=== PATIENT | male | born 1960 | race Caucasian/White ===

== ENCOUNTER 2016-09-20 13:00 | Emergency (ER) | payer OTHER ==
[~2016-09-20] VITALS: Wt 122.0 kg
[~2016-09-20 13:00] MED LIST: ASPIR LOW81 MG PO; BACTRIM DS 8001 TA1 PO; BUPROPION HYDR300 MG PO; CLEOCIN150 MG PO; ESCITALOPRAM OX20 MG PO; FLOVENT HF0.11 MG/AC INH; HYDROCODONE BIT1 T11 PO; HYDROXYZINE PAM50 MG PO; INVEGA9 MG PO; LATU40TA PO; LIPITOR20 MG PO; LISINOPRIL20 MG PO; MIRALAX POWDER17 G1 PO; PRILOSEC40 M1 PO; Peridex 473 ML473 ML PO; VENTOLIN H0.09 MG/AC INH; VICODIN ES 7501 TAB PO; Wellbutrin Xl150 MG PO
[2016-09-20] MEDS ORDERED: PALIPERIDONE ER6 MG PO (13:09)
[2016-09-20 13:18] LABS: BASO % 0.4 % (0.0-1.0); EOS # 0.2 10*3/uL (0.0-0.4); EOS % 2.3 % (1.0-4.0); HEMATOCRIT 46.8 % (42.0-52.0); LYMPH # 2.2 10*3/uL (1.3-4.4); LYMPH % 25.7 % (27.0-41.0); MEAN CELL VOLUME 86.8 fl (80.0-94.0); MEAN CORPUSCULAR HGB 29.7 pg (27.0-31.0); MEAN CORPUSCULAR HGB CONC 34.2 g/dl (33.0-37.0); MEAN PLATELET VOLUME 10.1 fl (9.6-12.3); MONO # 0.7 10*3/uL (0.1-1.0); MONO % 8.6 % (3.0-9.0); NEUT # 5.3 10*3/uL (2.3-7.9); NEUT % 62.8 % (47.0-73.0); PLATELET COUNT AUTOMATED 282 10*3/uL (130-400); RED BLOOD COUNT 5.39 10*6/uL (4.50-5.90); WHITE BLOOD COUNT 8.4 10*3/uL (4.8-10.8)
[2016-09-20 13:27] LABS: PROTHROMBIN TIME 10.6 SECONDS (9.0-12.4)
[2016-09-20 13:38] LABS: ALBUMIN 3.8 gm/dl (3.1-4.5); ALKALINE PHOSPHATASE 100 U/L (45-117); BILIRUBIN, TOTAL 0.7 mg/dl (0.2-1.0); BUN 7 mg/dl (7-24); CARBON DIOXIDE 28 mmol/L (21-32); CHLORIDE 103 mmol/L (98-107); EST GLOM FILT AFRICAN AMERICAN > 60 ml/min; GLUCOSE 99 mg/dL (65-99); MAGNESIUM 2.4 mg/dL (1.5-2.1); POTASSIUM 4.1 mmol/L (3.5-5.1); SGOT/AST 20 IU/L (3-35); SGPT/ALT 28 U/L (12-78); SODIUM 137 mmol/L (136-145); TOTAL PROTEIN 7.6 gm/dL (6.4-8.2)
[2016-09-20 13:40] LABS: TROPONIN I < 0.015 ng/ml (<0.045)
== END 2016-09-20 15:37 | disposition home or self-care (01) ==
LOC: ED 13:00
PROVIDERS: Emergency Medicine
DX: R07.9 Chest pain, unspecified (principal); F17.200 Nicotine dependence, unspecified, uncomplicated; I12.9 Hypertensive chronic kidney disease with stage 1 through stage 4 chronic kidney disease, or unspecified chronic kidney disease; N18.9 Chronic kidney disease, unspecified; E78.00 Pure hypercholesterolemia, unspecified; Z79.82 Long term (current) use of aspirin; Z79.899 Other long term (current) drug therapy; Z88.5 Allergy status to narcotic agent

== ENCOUNTER 2017-02-07 14:49 | Emergency (ER) | payer OTHER ==
[~2017-02-07] VITALS: Ht 177.8 cm; Wt 120.2 kg
[~2017-02-07 14:49] MED LIST changes: +PALIPERIDONE ER6 MG PO
== END 2017-02-07 17:35 | disposition short-term general hospital (02) ==
LOC: ED 14:49
DX: S02.642A Fracture of ramus of left mandible, initial encounter for closed fracture (principal); S02.2XXA Fracture of nasal bones, initial encounter for closed fracture; S00.83XA Contusion of other part of head, initial encounter; F17.200 Nicotine dependence, unspecified, uncomplicated; N18.9 Chronic kidney disease, unspecified; Z79.899 Other long term (current) drug therapy; Z79.82 Long term (current) use of aspirin; Z88.5 Allergy status to narcotic agent; W22.8XXA Striking against or struck by other objects, initial encounter; Y93.89 Activity, other specified; Y92.69 Other specified industrial and construction area as the place of occurrence of the external cause; Y99.9 Unspecified external cause status

== ENCOUNTER → 2017-06-30 | Outpatient (CLI) | payer OTHER | END | disposition home or self-care (01) | LOC: RAD 12:50 | DX: M25.511 Pain in right shoulder (principal); M79.1 Myalgia ==

== ENCOUNTER 2023-05-20 10:09 | Emergency (ER) | payer OTHER ==
[~2023-05-20] VITALS: Ht 177.8 cm; Wt 114.3 kg
[2023-05-20] MEDS ORDERED: ZITHROMAX250 MG PO (10:33)
[2023-05-20] MEDS ORDERED: PREDNISONE50 MG PO (10:33)
== END 2023-05-20 10:41 | disposition home or self-care (01) ==
LOC: ED 10:09
DX: J20.9 Acute bronchitis, unspecified (principal); Z88.5 Allergy status to narcotic agent; Z79.899 Other long term (current) drug therapy; Z79.82 Long term (current) use of aspirin

== ENCOUNTER 2024-06-28 19:31 | Inpatient (IN) | payer OTHER ==
[~2024-06-28] VITALS: Ht 177.8 cm; Wt 99.8 kg
[~2024-06-28 19:31] MED LIST changes: +PREDNISONE50 MG PO; +ZITHROMAX250 MG PO
[2024-06-28] MEDS ORDERED: AZITHROMYCIN 250 ML IV ONE (20:05)
[2024-06-28] MEDS ORDERED: cefTRIAXone Sodium 1 GM/10 ML SYR IV ONE (20:05)
[2024-06-28] MEDS ORDERED: dilTIAZem Hydrochloride 100 ML IV ONE (20:30)
[2024-06-28] MEDS ORDERED: LORazepam 1 MG TAB PO ONE (21:05)
[2024-06-28 21:35] VITALS: BP 116/80
[2024-06-28] MEDS ORDERED: Magnesium Hydroxide 30 ML UDC PO PRN (21:45)
[2024-06-28] MEDS ORDERED: BISACODYL 5 MG TAB PO PRN (21:45)
[2024-06-28] MEDS ORDERED: ACETAMINOPHEN 325 MG TAB PO PRN (21:45)
[2024-06-28] MEDS ORDERED: BISACODYL 10 MG SUPP R PRN (21:45)
[2024-06-28] MEDS ORDERED: Albuterol Sulf/Ipratropium 3 ML VIAL NEB ONE (21:45)
[2024-06-28] MEDS ORDERED: ACETAMINOPHEN 650 MG SUPP R PRN (21:45)
[2024-06-28] MEDS ORDERED: Albuterol Sulf/Ipratropium 3 ML VIAL NEB PRN (21:55)
[2024-06-28] MEDS ORDERED: methylPREDNISolone sod succ 40 MG VIAL IV SCH (21:55)
[2024-06-28] MEDS ORDERED: GUAIFENESIN 600 MG TAB ER PO SCH (22:00)
[2024-06-28] MEDS ORDERED: Doxycycline Hyclate 100 MG CAP PO SCH (22:00)
[2024-06-28] MEDS ORDERED: SODIUM CHLORIDE 0.9% 1,000 ML IV SCH (22:05)
[2024-06-28 22:28] VITALS: BP 107/77
[2024-06-28 23:26] VITALS: BP 111/68
[2024-06-29] VITALS (8 sets, daily range): BP systolic 97–132; BP diastolic 50–85
[2024-06-29 06:34] LABS: MEAN CELL VOLUME 89.3 fl (80.0-94.0); MEAN CORPUSCULAR HGB 28.8 pg (27.0-31.0); MEAN CORPUSCULAR HGB CONC 32.2 g/dl (33.0-37.0); MEAN PLATELET VOLUME 10.5 fl (9.6-12.3); MONO # 0.2 10*3/uL (0.1-1.0); MONO % 3.8 % (3.0-9.0); NEUT # 3.5 10*3/uL (2.3-7.9); NEUT % 86.4 % (47.0-73.0); PLATELET COUNT AUTOMATED 202 10*3/uL (130-400); RED BLOOD COUNT 5.49 10*6/uL (4.50-5.90); RED CELL DISTRI WIDTH 13.5 % (0-14.5)
[2024-06-29 06:45] LABS: ACT PARTIAL THROMBO TIME 28.3 SECONDS (20.0-32.1)
[2024-06-29] MEDS ORDERED: Pantoprazole Sodium 20 MG TAB PO SCH (06:45)
[2024-06-29 07:47] LABS: VITAMIN D, 25-HYDROXY 13.9 ng/mL (30-100)
[2024-06-29 07:49] LABS: ALKALINE PHOSPHATASE 79 U/L (46-116); BUN 16 mg/dl (9-23); CHLORIDE 102 mmol/L (98-107); CHOLESTEROL 111 mg/dL (<200); FREE T4 0.89 ng/dl (0.89-1.76); LDL CHOLESTEROL 71 mg/dL (9-159); POTASSIUM 4.7 mmol/L (3.4-5.1); SGPT/ALT 28 U/L (5-49); TOTAL PROTEIN 6.5 gm/dL (6.0-8.0); TRIGLYCERIDES 73 mg/dl (<150)
[2024-06-29] MEDS ORDERED: Nicotine 21 MG PATCH T SCH (10:00)
[2024-06-29] MEDS ORDERED: Cholecalciferol 2,000 UNIT TABLET (50 MCG) PO SCH (10:00)
[2024-06-29] MEDS ORDERED: ASPIRIN ENTERIC COATED 81 MG TAB PO SCH (10:00)
[2024-06-29] MEDS ORDERED: Enoxaparin Sodium 100 MG/ML SYR SC SCH (10:00)
[2024-06-29] MEDS ORDERED: cefTRIAXone Sodium 1 GM in SYRINGE INFUSION 10 ML IV SCH (20:00)
[2024-06-29] MEDS ORDERED: ATORVASTATIN CALCIUM 20 MG TAB PO SCH (22:00)
== END 2024-06-29 18:41 | disposition left against medical advice (07) | DRG 720 ==
LOC: ED 19:31 → EDHOLD 21:22
PROVIDERS: ADMIT Internal Medicine; ATTEND Internal Medicine
DX: A41.9 Sepsis, unspecified organism (principal); J96.01 Acute respiratory failure with hypoxia; I48.92 Unspecified atrial flutter; J18.9 Pneumonia, unspecified organism; J44.1 Chronic obstructive pulmonary disease with (acute) exacerbation; E87.1 Hypo-osmolality and hyponatremia; Z20.822 Contact with and (suspected) exposure to COVID-19; F41.9 Anxiety disorder, unspecified; I25.2 Old myocardial infarction; E78.5 Hyperlipidemia, unspecified; I10 Essential (primary) hypertension; F43.10 Post-traumatic stress disorder, unspecified; F17.210 Nicotine dependence, cigarettes, uncomplicated; G47.33 Obstructive sleep apnea (adult) (pediatric); Z53.29 Procedure and treatment not carried out because of patient's decision for other reasons; F31.9 Bipolar disorder, unspecified; J44.0 Chronic obstructive pulmonary disease with (acute) lower respiratory infection; E66.01 Morbid (severe) obesity due to excess calories; J45.901 Unspecified asthma with (acute) exacerbation; E55.9 Vitamin D deficiency, unspecified; R65.20 Severe sepsis without septic shock; Z82.49 Family history of ischemic heart disease and other diseases of the circulatory system; Z88.8 Allergy status to other drugs, medicaments and biological substances

== ENCOUNTER → 2024-08-10 | Outpatient (CLI) | payer OTHER | END | disposition home or self-care (01) | LOC: CARD 10:17 | PROVIDERS: ATTEND Internal Medicine Cardiovascular Disease | DX: I35.8 Other nonrheumatic aortic valve disorders (principal); I11.0 Hypertensive heart disease with heart failure; I48.0 Paroxysmal atrial fibrillation; E78.5 Hyperlipidemia, unspecified ==

== ENCOUNTER 2024-11-11 10:05 | Emergency (ER) | payer OTHER ==
[~2024-11-11] VITALS: Ht 180.3 cm; Wt 125.2 kg
[~2024-11-11 10:05] MED LIST changes: +DILTIAZEM 24HR120 M1 PO; +VENT7GM INH; +VITAMIN D3125 MCG PO; +XARE20MG PO
[2024-11-11] MEDS ORDERED: MAGNESIUM SULFATE 50 ML IV ONE (10:30)
[2024-11-11] MEDS ORDERED: Albuterol Sulfate 2.5 MG/3 ML VIAL NEB ONE (10:30)
[2024-11-11] MEDS ORDERED: methylPREDNISolone sod succ 125 MG VIAL IV ONE (10:30)
[2024-11-11] MEDS ORDERED: AZITHROMYCIN 250 MG TAB PO ONE (10:30)
[2024-11-11 10:44] LABS: BASO % 0.3 % (0.0-1.0); EOS # 0.1 10*3/uL (0.0-0.4); EOS % 1.8 % (1.0-4.0); HEMATOCRIT 44.2 % (42.0-52.0); MEAN CELL VOLUME 91.3 fl (80.0-94.0); MEAN CORPUSCULAR HGB 29.3 pg (27.0-31.0); MEAN CORPUSCULAR HGB CONC 32.1 g/dl (33.0-37.0); MEAN PLATELET VOLUME 10.3 fl (9.6-12.3); MONO # 0.8 10*3/uL (0.1-1.0); NEUT # 5.2 10*3/uL (2.3-7.9); NEUT % 72.6 % (47.0-73.0); PLATELET COUNT AUTOMATED 246 10*3/uL (130-400); RED BLOOD COUNT 4.84 10*6/uL (4.50-5.90); RED CELL DISTRI WIDTH 14.1 % (0-14.5); WHITE BLOOD COUNT 7.1 10*3/uL (4.8-10.8)
[2024-11-11 11:03] LABS: BUN 9 mg/dl (9-23); CHLORIDE 103 mmol/L (98-107); POTASSIUM 4.7 mmol/L (3.4-5.1)
[2024-11-11] MEDS ORDERED: FUROSEMIDE 40 MG/4 ML VIAL IV ONE (11:50)
[2024-11-11] MEDS ORDERED: Metoprolol Tartrate 5 MG/5 ML VIAL IV ONE (12:00)
[2024-11-11] MEDS ORDERED: PREDNISONE20 M1 PO (12:08)
[2024-11-11] MEDS ORDERED: LASIX20 MG PO (12:08)
[2024-11-11] MEDS ORDERED: AVPAK AZITHROM250 M1 PO (12:08)
== END 2024-11-11 12:13 | disposition home or self-care (01) ==
LOC: ED 10:05
PROVIDERS: Emergency Medicine
DX: I11.0 Hypertensive heart disease with heart failure (principal); I50.9 Heart failure, unspecified; J44.1 Chronic obstructive pulmonary disease with (acute) exacerbation; E78.5 Hyperlipidemia, unspecified; F32.A Depression, unspecified; F41.9 Anxiety disorder, unspecified; F17.210 Nicotine dependence, cigarettes, uncomplicated; Z88.5 Allergy status to narcotic agent; Z79.82 Long term (current) use of aspirin; Z79.899 Other long term (current) drug therapy; Z90.89 Acquired absence of other organs; Z98.890 Other specified postprocedural states

== ENCOUNTER → 2025-01-05 | Outpatient (CLI) | payer OTHER ==
[~2025-01-05] MED LIST changes: +AVPAK AZITHROM250 M1 PO; +LASIX20 MG PO; +PREDNISONE20 M1 PO
[2025-01-05 11:09] LABS: BUN 20 mg/dl (9-23)
== END | disposition home or self-care (01) ==
LOC: LAB 09:39
PROVIDERS: ATTEND Nurse Practitioner Family
DX: R22.43 Localized swelling, mass and lump, lower limb, bilateral (principal)